=== PATIENT | female | born 1975 | race Caucasian/White ===

== ENCOUNTER 2021-01-16 08:00 | Outpatient (CLI) | payer BC, OTHER ==
--- NOTE | 2021-01-16 10:25 | XRAY Report ---
PROCEDURE: Chest 2 View X-Ray INDICATIONS: DYSPNEA TECHNIQUE: 2 view(s) of the chest. COMPARISON: None. FINDINGS: Surgical changes and devices: None. Lungs and pleura: No pleural effusions or pneumothorax. Lungs are clear. Mediastinum: Mediastinal contours are normal. Heart size is normal. Bones and chest wall: No suspicious bony abnormalities. Soft tissues appear unremarkable. IMPRESSION: No acute cardiopulmonary abnormality identified. Reviewed by: Benjamin Franklin MD on 01/16/2021 10:24 AM [facility] Approved by: Benjamin Franklin MD on 01/16/2021 10:24 AM [facility] Station ID: [id number]
== END 2021-01-16 23:59 | disposition home or self-care (01) ==
LOC: DI.S 08:00
PROVIDERS: ATTEND Physician Assistant Medical
DX: R06.02 Shortness of breath (principal); R05.9 Cough, unspecified; Z20.822 Contact with and (suspected) exposure to COVID-19

== ENCOUNTER 2023-02-20 13:14 | Outpatient (CLI) | payer BC ==
[2023-02-20 15:20] LABS: BASOPHILS # (AUTO) 0.1 10^3/uL (0.0-0.1); BASOPHILS % (AUTO) 0.6 %; EOSINOPHILS # (AUTO) 0.1 10^3/uL (0.0-0.7); EOSINOPHILS % (AUTO) 0.7 %; HCT - HEMATOCRIT 42.2 % (37.0-47.0); HGB - HEMOGLOBIN 13.8 g/dL (12.0-16.0); LYMPHOCYTES % (AUTO) 18.3 %; MEAN CORPUSCULAR HEMOGLOBIN 34.1 pg (27.0-31.0); MEAN CORPUSCULAR HGB CONC 32.7 g/dL (32.0-36.0); MEAN CORPUSCULAR VOLUME 104.2 fL (81.0-99.0); MEAN PLATELET VOLUME 10.8 fL (7.9-10.8); MONOCYTES # (AUTO) 0.7 10^3/uL (0.0-1.0); MONOCYTES % (AUTO) 6.3 %; NEUTROPHILS # (AUTO) 7.9 10^3/uL (1.5-6.6); NEUTROPHILS % (AUTO) 73.7 %; PLT - PLATELET COUNT 193 10^3/uL (130-450); RED BLOOD COUNT 4.05 10^6/uL (4.20-5.40); RED CELL DISTRIBUTION WIDTH 13.2 % (12.0-15.0); WHITE BLOOD COUNT 10.7 x10^3/uL (4.8-10.8)
[2023-02-20 20:48] LABS: GLUCOSE, URINE (UA) NEGATIVE (NEGATIVE); KETONES,URINE (UA) 15 mg/dL (NEGATIVE); LEUKOCYTE ESTERASE, URINE NEGATIVE (NEGATIVE); NITRITE,URINE NEGATIVE (NEGATIVE); OCCULT BLOOD,URINE NEGATIVE (NEGATIVE); PROTEIN,URINE NEGATIVE (NEGATIVE); UROBILINOGEN,URINE 0.2 (NORMAL) E.U./dL (NORMAL)
[2023-02-20 20:49] LABS: ALBUMIN 4.4 g/dL (3.2-5.5); ALBUMIN/GLOBULIN RATIO 1.6 (1.0-2.2); ALKALINE PHOSPHATASE 74 IU/L (42-121); ALT ALANINE AMINOTRANSFERASE 13 IU/L (10-60); AST ASPARTATE AMINOTRANSFERASE 17 IU/L (10-42); BILIRUBIN,TOTAL 0.8 mg/dL (0.2-1.0); BUN - BLOOD UREA NITROGEN 13 mg/dL (6-20); CALCIUM 9.5 mg/dL (8.5-10.3); CARBON DIOXIDE - CO2 31 mmol/L (21-32); CHLORIDE 101 mmol/L (101-111); CHOL/HDL RATIO 2.1 (<4.4); CHOLESTEROL 195 mg/dL; CREATININE 0.6 mg/dL (0.6-1.3); GFR - MDRD 106 (>89); GLUCOSE 97 mg/dL (74-104); HDL CHOLESTEROL 93 mg/dL; LDL CHOLESTEROL,CALCULATED 84 mg/dL; LDL/HDL RATIO 0.9 (<4.4); POTASSIUM 3.7 mmol/L (3.5-4.5); SODIUM 139 mmol/L (135-145); TOTAL PROTEIN 7.2 g/dL (6.4-8.9); TRIGLYCERIDES 89 mg/dL (48-352); VLDL CHOLESTEROL 18 mg/dL
[2023-02-20 21:01] LABS: THYROID STIMULATING HORMONE 1.33 uIU/mL (0.34-5.60)
[2023-02-20 21:23] LABS: CLARITY,URINE CLEAR (CLEAR)
[2023-02-20 21:24] LABS: BILIRUBIN,URINE NEGATIVE (NEGATIVE); CRYSTALS,URINE >50 Calcium Oxalate /LPF; EPITHELIAL CELLS,UR None Seen /HPF (<= Few); ICTOTEST,URINE NEGATIVE; RBC,URINE None Seen /HPF (0-5); SQUAMOUS EPITHELIAL CELL,UR RARE Squamous (<= Few); WBC,URINE 0-3 /HPF (0-5)
[2023-02-20 21:27] LABS: BACTERIA,URINE Rare /HPF (None Seen)
[2023-02-20 22:26] LABS: ESTIMATED AVERAGE GLUCOSE 97 mg/dL (70-100)
== END 2023-02-20 13:15 | disposition home or self-care (01) ==
LOC: LAB.S 13:14
PROVIDERS: ATTEND Physician Assistant Medical
DX: R35.0 Frequency of micturition (principal); Z13.9 Encounter for screening, unspecified
CPT/HCPCS: 36415; 80053; 80061; 81001; 83036; 83721; 84443; 85025; 87086